=== PATIENT | female | born 1955 | race Caucasian/White ===

== ENCOUNTER 2016-12-04 09:15 | Outpatient (CLI) | payer OTHER | END 2016-12-04 09:16 | disposition home or self-care (01) | DX: Z12.31 Encounter for screening mammogram for malignant neoplasm of breast (principal) ==

== ENCOUNTER 2016-12-10 08:45 | Outpatient (CLI) | payer OTHER | END 2016-12-10 08:46 | disposition home or self-care (01) | DX: N39.0 Urinary tract infection, site not specified (principal) ==

== ENCOUNTER 2017-02-27 11:00 | Outpatient (CLI) | payer OTHER | END 2017-02-27 11:01 | disposition home or self-care (01) | DX: Z00.00 Encounter for general adult medical examination without abnormal findings (principal); E03.9 Hypothyroidism, unspecified ==

== ENCOUNTER 2017-10-25 12:36 | Outpatient (CLI) | payer OTHER ==
--- NOTE | 2017-10-25 19:46 | Ultrasound Report ---
EXAM: PELVIC ULTRASOUND EXAM DATE: 10/25/2017 04:05 PM. CLINICAL HISTORY: Pelvic pain COMPARISON: None. TECHNIQUE: Realtime transabdominal pelvic scan performed to identify the uterus and adnexa and as an overview of other pelvic structures, followed by transvaginal scan to provide greater detail of the u terus and adnexa, with static image documentation. FINDINGS: Uterus: 6.6 x 3.3 x 4.7 cm, volume 53 cc. Anteverted position. Normal overall size and echotexture. Masses: No overt abnormalities. There is some heterogeneity of the lower uterine segment and cervix. Endometrium: 7 mm. Normal. Cervix: Limited detail. Right Ovary: 1.7 x 1.6 x 1.2 cm, volume 2 cc. Echotexture within normal limits. Left Ovary: 2.0 x 0.9 x 1.7 cm, volume 2 cc. Normal echotexture and blood flow. Free Fluid: None. Other: None. IMPRESSION: 1. Endometrium measures 0.7 cm in thickness. This is abnormal in a postmenopausal patient. Differenti al considerations include hyperplasia or carcinoma. 2. No significant adnexal abnormalities are seen. [facility] Referring Provider Line: [phone] SITE ID: [id number]
--- NOTE | 2017-10-25 22:54 | XRAY Report ---
EXAM: RIGHT KNEE RADIOGRAPHY EXAM DATE: 10/25/2017 01:22 PM. CLINICAL HISTORY: Right knee pain. COMPARISON: None. TECHNIQUE: 2 views. FINDINGS: Bones: Normal. No fractures or bone lesions. Joints: Normal. No effusion. No subluxations. Soft Tissues: Normal. No soft tissue swelling. IMPRESSION: Normal knee radiography. [facility] Referring Provider Line: [phone] SITE ID: [id number]
== END 2017-10-25 12:37 | disposition home or self-care (01) ==
LOC: DI 12:36
PROVIDERS: ATTEND Family Medicine
DX: R10.2 Pelvic and perineal pain (principal); M25.561 Pain in right knee
CPT/HCPCS: 76830; 76856

== ENCOUNTER 2018-02-12 08:40 | Outpatient (CLI) | payer OTHER ==
--- NOTE | 2018-02-13 15:53 | Mammography Report ---
DIGITAL SCREENING MAMMOGRAM: 02/12/2018 CLINICAL INDICATION: A 62-year-old, for screening. COMPARISON: 11/2016, 11/2015, 03/2014, 12/2012, 10/2011, 10/2010. TECHNIQUE: Routine CC and MLO projections were obtained of the breasts. FINDINGS: Scattered fibroglandular tissue is present within the breasts. There are no dominant masses, suspicious microcalcifications, or secondary signs of malignancy. In comparison to the previous studies, there are no significant changes. ASSESSMENT: NO MAMMOGRAPHIC EVIDENCE OF MALIGNANCY. NO SIGNIFICANT INTERVAL CHANGES. RECOMMENDATION: Screening mammography is recommended annually. BIRADS category 1 - negative. STANDARD QUALIFYING STATEMENTS: 1. This examination was reviewed with the aid of Computed-Aided Detection (CAD). 2. A negative or benign imaging report should not delay biopsy if clinically suspicious findings are present. Consider surgical consultation if warranted. More than 5% of cancers are not identified by imaging. 3. Dense breasts may obscure an underlying neoplasm. TD: 02/13/2018 15:53
== END 2018-02-12 08:41 | disposition home or self-care (01) ==
LOC: DI 08:40
PROVIDERS: ATTEND Family Medicine
DX: Z12.31 Encounter for screening mammogram for malignant neoplasm of breast (principal)
CPT/HCPCS: 77067

== ENCOUNTER 2019-02-22 10:21 | Day surgery (SDC) | payer OTHER ==
[2019-02-22] MEDS ORDERED: LACTATED RINGERS 1,000 ML IV ONE (10:49)
[2019-02-22] MEDS ORDERED: fentaNYL 250 MCG/5 ML VIAL IVP ONE (12:24)
[2019-02-22] MEDS ORDERED: MIDAZOLAM 2 MG/2 ML VIAL IVP ONE (12:24)
[2019-02-22 13:35] VITALS: BP 99/68
== END 2019-02-22 10:22 | disposition home or self-care (01) ==
LOC: SDS 10:21
PROVIDERS: ATTEND Surgery
PROC: 0DBP8ZZ Excision of Rectum, Via Natural or Artificial Opening Endoscopic (ICD-10-PCS; principal; 2019-02-22 11:30)
DX: Z12.11 Encounter for screening for malignant neoplasm of colon (principal); Z79.82 Long term (current) use of aspirin; D12.8 Benign neoplasm of rectum; J45.909 Unspecified asthma, uncomplicated; E07.9 Disorder of thyroid, unspecified; K64.8 Other hemorrhoids
CPT/HCPCS: 45380; J7120

== ENCOUNTER 2019-04-16 08:35 | Outpatient (CLI) | payer OTHER ==
[2019-04-16 10:00] LABS: ALBUMIN 3.8 g/dL (3.2-5.5); ALBUMIN/GLOBULIN RATIO 1.3 (1.0-2.2); BILIRUBIN,TOTAL 0.6 mg/dL (0.2-1.0); CALCIUM 8.6 mg/dL (8.5-10.3); CREATININE 0.7 mg/dL (0.4-1.0); TOTAL PROTEIN 6.8 g/dL (6.7-8.2)
== END 2019-04-16 08:36 | disposition home or self-care (01) ==
LOC: LAB 08:35
PROVIDERS: ATTEND Family Medicine
DX: E03.9 Hypothyroidism, unspecified (principal); Z79.899 Other long term (current) drug therapy
CPT/HCPCS: 36415; 80053; 84443

== ENCOUNTER 2019-04-20 09:01 | Outpatient (CLI) | payer OTHER ==
[2019-04-20 10:00] LABS: BASOPHILS % (AUTO) 0.8 %; EOSINOPHILS # (AUTO) 0.1 10^3/uL (0.0-0.7); EOSINOPHILS % (AUTO) 2.2 %; HGB - HEMOGLOBIN 14.1 g/dL (12.0-16.0); LYMPHOCYTES # (AUTO) 1.7 10^3/uL (1.5-3.5); LYMPHOCYTES % (AUTO) 40.3 %; MEAN CORPUSCULAR HEMOGLOBIN 28.9 pg (27.0-31.0); MEAN CORPUSCULAR HGB CONC 33.4 g/dL (32.0-36.0); MEAN CORPUSCULAR VOLUME 86.6 fL (81.0-99.0); MEAN PLATELET VOLUME 9.4 fL (7.9-10.8); MONOCYTES # (AUTO) 0.3 10^3/uL (0.0-1.0); MONOCYTES % (AUTO) 6.3 %; NEUTROPHILS # (AUTO) 2.2 10^3/uL (1.5-6.6); NEUTROPHILS % (AUTO) 50.4 %; PLT - PLATELET COUNT 144 10^3/uL (130-450); RED BLOOD COUNT 4.87 10^6/uL (4.20-5.40); RED CELL DISTRIBUTION WIDTH 13.1 % (12.0-15.0); WHITE BLOOD COUNT 4.3 x10^3/uL (4.8-10.8)
[2019-04-20 10:12] LABS: HB2 TOTAL 15.2 g/dL; HEMOGLOBIN A1C 0.6 g/dL; HEMOGLOBIN A1C % 5.8 % (4.6-6.2)
[2019-04-20 10:24] LABS: CHOL/HDL RATIO 3.8 (<4.4); CHOLESTEROL 163 mg/dL; HDL CHOLESTEROL 43 mg/dL; LDL CHOLESTEROL,CALCULATED 98 mg/dL; LDL/HDL RATIO 2.3 (<4.4); VLDL CHOLESTEROL 22 mg/dL
== END 2019-04-20 09:02 | disposition home or self-care (01) ==
LOC: LAB 09:01
PROVIDERS: ATTEND Family Medicine
DX: Z00.00 Encounter for general adult medical examination without abnormal findings (principal)
CPT/HCPCS: 36415; 80061; 83036; 83721; 85025

== ENCOUNTER 2019-05-12 07:59 | Outpatient (CLI) | payer OTHER ==
--- NOTE | 2019-05-12 08:58 | Mammography Report ---
Reason: SCREENING MAMMO Procedure Date: 05/12/2019 Accession Number: [id number] / [id number] Procedure: WIN - Screening Mammo w/Jose CPT Code: FULL RESULT: EXAM: Screening Mammo w/Jose DATE: 05/12/2019 8:48 AM CLINICAL HISTORY: Screening encounter. No reported risk factors. TECHNIQUE: (B) - Bilateral CC and MLO views were obtained. COMPARISON: 02/12/2018 through 03/28/2014. PARENCHYMAL PATTERN: (A) - The breast(s) demonstrate(s) scattered fibroglandular densities. FINDINGS: There are no suspicious masses, calcifications, or areas of distortion. IMPRESSION: Negative examination. BI-RADS category 1. RECOMMENDATION: (ANNUAL) - Recommend routine annual screening mammography. BI-RADS CATEGORY: (1) - Negative. STANDARD QUALIFYING STATEMENTS: 1. This examination was not reviewed with the aid of Computer-Aided Detection (CAD). 2. A negative or benign imaging report should not preclude biopsy if clinically suspicious findings are present. 3. Dense breasts may obscure an underlying neoplasm. 4. This examination was reviewed with the aid of 3D breast imaging (tomosynthesis).
== END 2019-05-12 08:00 | disposition home or self-care (01) ==
LOC: DI 07:59
DX: Z12.31 Encounter for screening mammogram for malignant neoplasm of breast (principal)
CPT/HCPCS: 77063; 77067

== ENCOUNTER 2020-01-17 08:34 | Outpatient (CLI) | payer OTHER ==
[2020-01-17 08:55] LABS: CALCIUM 8.7 mg/dL (8.5-10.3); CREATININE 0.9 mg/dL (0.4-1.0)
[2020-01-17 09:09] LABS: HB2 TOTAL 14.8 g/dL; HEMOGLOBIN A1C 0.58 g/dL; HEMOGLOBIN A1C % 5.7 % (4.6-6.2)
== END 2020-01-17 08:35 | disposition home or self-care (01) ==
LOC: LAB 08:34
PROVIDERS: ATTEND Physician Assistant Medical
DX: R73.01 Impaired fasting glucose (principal)
CPT/HCPCS: 36415; 80048; 83036

== ENCOUNTER 2020-01-31 12:07 | Outpatient (CLI) | payer OTHER ==
[2020-01-31 18:49] LABS: CHOL/HDL RATIO 3.6 (<4.4); CHOLESTEROL 160 mg/dL; HDL CHOLESTEROL 44 mg/dL; LDL CHOLESTEROL,CALCULATED 85 mg/dL; LDL/HDL RATIO 1.9 (<4.4); VLDL CHOLESTEROL 31 mg/dL
== END 2020-01-31 23:59 | disposition home or self-care (01) ==
LOC: LAB.WCP 12:07
PROVIDERS: ATTEND Physician Assistant Medical
DX: Z00.00 Encounter for general adult medical examination without abnormal findings (principal); E03.9 Hypothyroidism, unspecified
CPT/HCPCS: 36415; 80061; 83721; 84443

== ENCOUNTER 2020-02-03 09:07 | Outpatient (CLI) | payer OTHER | END 2020-02-03 09:08 | disposition home or self-care (01) | LOC: DI 09:07 | PROVIDERS: ATTEND Physician Assistant Medical | DX: I34.1 Nonrheumatic mitral (valve) prolapse (principal) | CPT/HCPCS: 93306 ==

== ENCOUNTER 2020-07-25 08:00 | Outpatient (CLI) | payer OTHER ==
[2020-07-25 18:46] LABS: CALCIUM 9.1 mg/dL (8.5-10.3); CREATININE 0.7 mg/dL (0.4-1.0)
[2020-07-25 20:04] LABS: HEMOGLOBIN A1c% 5.6 % (4.27-6.07)
== END 2020-07-25 23:59 | disposition home or self-care (01) ==
LOC: LAB.WCP 08:00
PROVIDERS: ATTEND Physician Assistant Medical
DX: R73.01 Impaired fasting glucose (principal)
CPT/HCPCS: 36415; 80048; 83036

== ENCOUNTER 2020-08-25 09:52 | Outpatient (CLI) | payer OTHER ==
--- NOTE | 2020-08-25 11:44 | DEXA Report ---
PROCEDURE: Dexa Spine and/or Hip INDICATIONS: POST MENOPAUSAL TECHNIQUE: Dual energy x-ray absorptiometry (DXA) was performed on a Isabella Oliver System. Regions measur ed are the AP Spine, femoral neck, and if needed forearm. COMPARISON: None. FINDINGS: Lumbar Spine: Bone Mineral Density 0.990 g/cm/cm,T score -1.6, osteopenia Left Hip: Bone Mineral Density 0.995 g/cm/cm,T score -0.1, normal Left Femoral Neck: Bone Mineral Density 0.977 g/cm/cm, T score -0.4, normal (T score greater or equal to -1.0: NORMAL) (T score from -1.1 to -2.4: OSTEOPENIA) (T score less than or equal to -2.5 to: OSTEOPOROSIS) Impression: Osteopenia. Patients with diagnosis of osteoporosis or osteopenia should have regular bone mineral density assess ment. For those eligible for Medicare, routine testing is allowed once every 2 years. Testing frequ ency can be increased for patients who have rapidly progressing disease or for those who are receivin g medical therapy to restore bone mass. Reviewed by: Bel Walker MD, PhD on 08/25/2020 11:43 AM PDT Approved by: Bel Walker MD, PhD on 08/25/2020 11:43 AM PDT Station ID: [id number]
== END 2020-08-25 09:53 | disposition home or self-care (01) ==
LOC: DI 09:52
PROVIDERS: ATTEND Physician Assistant Medical
DX: M85.88 Other specified disorders of bone density and structure, other site (principal); Z78.0 Asymptomatic menopausal state
CPT/HCPCS: 77080

== ENCOUNTER 2020-08-30 15:21 | Outpatient (CLI) | payer OTHER ==
--- NOTE | 2020-08-31 14:12 | Mammography Report ---
BILATERAL DIGITAL SCREENING MAMMOGRAM 3D/2D: 08/30/2020 CLINICAL: Routine screening. Comparison is made to exams dated: 05/12/2019 mammogram, 02/12/2018 mammogram, 12/04/2016 mammogram, 12/01/2015 mammogram, 03/28/2014 mammogram, and 12/30/2012 mammogram - [facility]. The tis lynne of both breasts is predominantly fatty. No significant masses, calcifications, or other findings are seen in either breast. There has been no significant interval change. IMPRESSION: NEGATIVE There is no mammographic evidence of malignancy. A 1 year screening mammogram is recommended. This exam was interpreted at Station ID: [id number]. NOTE: For mammograms, a report in lay terms will be sent to the patient. Approximately 15% of breast malignancies will not be visualized mammographically. In the management of a palpable breast mass, a negative mammogram must not discourage biopsy of a clinically suspicious lesion. Electronically Signed By: Ty Merchant M.D., jr/po:08/30/2020 16:46:04 ACR BI-RADS Category 1: Negative 3341F PARENCHYMAL PATTERN: (F) - The breast(s) demonstrate(s) diffuse fatty replacement. BI-RADS CATEGORY: (1) - 1 RECOMMENDATION: (ANNUAL) - Recommend routine annual screening mammography. [id number] 1 year screening LATERALITY: (B)
== END 2020-08-30 15:22 | disposition home or self-care (01) ==
LOC: DI 15:21
DX: Z12.31 Encounter for screening mammogram for malignant neoplasm of breast (principal)
CPT/HCPCS: 77063; 77067

== ENCOUNTER 2021-05-15 08:00 | Outpatient (CLI) | payer OTHER ==
[2021-05-15 18:07] LABS: ALBUMIN 3.9 g/dL (3.2-5.5); ALBUMIN/GLOBULIN RATIO 1.3 (1.0-2.2); BILIRUBIN,TOTAL 0.4 mg/dL (0.2-1.0); CALCIUM 8.7 mg/dL (8.5-10.3); CREATININE 0.8 mg/dL (0.4-1.0); POTASSIUM 3.8 mmol/L (3.5-5.0); TOTAL PROTEIN 6.8 g/dL (6.7-8.2)
[2021-05-15 18:21] LABS: THYROID STIMULATING HORMONE 8.51 uIU/mL (0.34-5.60)
[2021-05-15 19:09] LABS: FREE T4 (FREE THYROXINE) 0.93 ng/dL (0.58-1.64)
== END 2021-05-15 23:59 | disposition home or self-care (01) ==
LOC: LAB.WCP 08:00
PROVIDERS: ATTEND Physician Assistant Medical
DX: Z00.00 Encounter for general adult medical examination without abnormal findings (principal); E03.9 Hypothyroidism, unspecified
CPT/HCPCS: 36415; 80053; 84439; 84443

== ENCOUNTER 2021-06-05 14:03 | Outpatient (CLI) | payer OTHER ==
--- NOTE | 2021-06-05 17:18 | XRAY Report ---
PROCEDURE: Knee 3 View RT INDICATIONS: R KNEE PX TECHNIQUE: 3 views of the right knee(s) were acquired. COMPARISON: None. FINDINGS: Bones: No fractures or dislocations. Mild medial femoral tibial compartment osteoarthritic changes a re seen. No suspicious bony lesions. Soft tissues: No joint effusion. No suspicious soft tissue calcifications. IMPRESSION: Medial femoral tibial compartment osteoarthritis. No right knee fracture or dislocation. No significant joint effusion. Reviewed by: Shadi Jean Baptiste MD on 06/05/2021 5:16 PM PDT Approved by: Shadi Jean Baptiste MD on 06/05/2021 5:16 PM PDT Station ID: [id number]
== END 2021-06-05 14:04 | disposition home or self-care (01) ==
LOC: DI.N 14:03
PROVIDERS: ATTEND Physician Assistant Medical
DX: M25.561 Pain in right knee (principal); M17.11 Unilateral primary osteoarthritis, right knee

== ENCOUNTER 2021-07-25 09:09 | Outpatient (CLI) | payer OTHER ==
[2021-07-25 12:50] LABS: THYROID STIMULATING HORMONE 5.17 uIU/mL (0.34-5.60)
[2021-07-25 12:52] LABS: FREE T4 (FREE THYROXINE) 1.25 ng/dL (0.58-1.64)
== END 2021-07-25 23:59 | disposition home or self-care (01) ==
LOC: LAB.WCP 09:09
PROVIDERS: ATTEND Physician Assistant Medical
DX: E03.9 Hypothyroidism, unspecified (principal)
CPT/HCPCS: 36415; 84439; 84443

== ENCOUNTER 2021-08-16 16:27 | Outpatient (CLI) | payer OTHER | END 2021-08-16 16:28 | disposition home or self-care (01) | LOC: COV 16:27 | PROVIDERS: ATTEND Family Medicine | DX: Z20.822 Contact with and (suspected) exposure to COVID-19 (principal) ==

== ENCOUNTER 2021-09-10 13:50 | Outpatient (CLI) | payer MEDICARE, BC ==
--- NOTE | 2021-09-11 10:21 | Mammography Report ---
BILATERAL DIGITAL SCREENING MAMMOGRAM 3D/2D: 09/10/2021 CLINICAL: Routine screening. Comparison is made to exams dated: 08/30/2020 mammogram, 05/12/2019 mammogram, 02/12/2018 mammogram, 09/2017 mammogram, 12/01/2015 mammogram, and 03/28/2014 mammogram - [facility]. The ti ssue of both breasts is predominantly fatty. No significant masses, calcifications, or other findings are seen in either breast. There has been no significant interval change. IMPRESSION: NEGATIVE There is no mammographic evidence of malignancy. A 1 year screening mammogram is recommended. This exam was interpreted at Station ID: [id number]. NOTE: For mammograms, a report in lay terms will be sent to the patient. Approximately 15% of breast malignancies will not be visualized mammographically. In the management of a palpable breast mass, a negative mammogram must not discourage biopsy of a clinically suspicious lesion. Electronically Signed By: Ty Merchant M.D., jr/po:09/10/2021 14:59:55 ACR BI-RADS Category 1: Negative 3341F PARENCHYMAL PATTERN: (F) - The breast(s) demonstrate(s) diffuse fatty replacement. BI-RADS CATEGORY: (1) - 1 RECOMMENDATION: (ANNUAL) - Recommend routine annual screening mammography. [id number] 1 year screening LATERALITY: (B)
== END 2021-09-10 13:51 | disposition home or self-care (01) ==
LOC: DI 13:50
DX: Z12.31 Encounter for screening mammogram for malignant neoplasm of breast (principal)

== ENCOUNTER 2022-02-02 11:08 | Outpatient (CLI) | payer MEDICARE, BC ==
--- NOTE | 2022-02-02 12:54 | XRAY Report ---
PROCEDURE: Cervical Spine w/Flex/Ext INDICATIONS: NECK PAIN, RIGHT TECHNIQUE: 7 views of the cervical spine were acquired. COMPARISON: None. FINDINGS: Bones: No fractures or dislocations to the C7-T1 level. No suspicious bony lesions. Degenerative d isc disease at C4-5 through C6-7 levels are seen with degenerative endplate changes and slight loss o f disc height most prominent at C6-7 level. Minimal anterolisthesis of C5 on C6 is also seen. There i s decreased range of motion between flexion and extension, with preserved cervical spine alignment. L eft-sided bony foraminal stenosis is noted at C7 level on oblique views. Soft tissues: Prevertebral soft tissues are normal in thickness. IMPRESSION: 1. Degenerative disc disease in mid to lower cervical spine. No acute fracture or dislocation. Grade 1 anterolisthesis of C5 on C6. Suggestion of left-sided bony foraminal stenosis at C6-7 level. 2. Decreased range of motion on lateral flexion and extension views with preserved cervical spine ali gnment. Reviewed by: Shadi Jean Baptiste MD on 02/02/2022 12:53 PM PST Approved by: Shadi Jean Baptiste MD on 02/02/2022 12:53 PM PST Station ID: [id number]
== END 2022-02-02 11:09 | disposition home or self-care (01) ==
LOC: DI.N 11:08
PROVIDERS: ATTEND Physician Assistant
DX: M43.12 Spondylolisthesis, cervical region (principal); M50.321 Other cervical disc degeneration at C4-C5 level; M48.02 Spinal stenosis, cervical region

== ENCOUNTER 2022-09-30 10:12 | Outpatient (CLI) | payer MEDICARE, BC ==
[2022-09-30 12:51] LABS: THYROID STIMULATING HORMONE 2.51 uIU/mL (0.34-5.60)
== END 2022-09-30 10:13 | disposition home or self-care (01) ==
LOC: LAB.N 10:12
PROVIDERS: ATTEND Physician Assistant Medical
DX: E03.9 Hypothyroidism, unspecified (principal)
CPT/HCPCS: 36415; 84443

== ENCOUNTER 2022-12-06 09:50 | Outpatient (CLI) | payer MEDICARE, BC ==
--- NOTE | 2022-12-06 12:49 | Mammography Report ---
BILATERAL DIGITAL SCREENING MAMMOGRAM 3D/2D: 12/06/2022 CLINICAL: Routine screening. Comparison is made to exams dated: 09/10/2021 mammogram, 08/30/2020 mammogram, 05/12/2019 mammogram, mammogram, 12/04/2016 mammogram, and 12/01/2015 mammogram - [facility]. Both breasts are heterogeneously dense, which may obscure small masses (category c / 51-75% glandular tissue). No significant masses, calcifications, or other findings are seen in either breast. There has been no significant interval change. IMPRESSION: NEGATIVE There is no mammographic evidence of malignancy. A 1 year screening mammogram is recommended. Based on the Tyrer Cuzick model (a risk assessment model) the patients lifetime risk is 7.6% and her 10 year risk is 4.0%. According to the ACR, ACS, and NCCN guidelines, an annual breast MRI exam mindy g with mammogram is recommended if the patients lifetime risk is 20% or greater. This exam was interpreted at Station ID: [id number]. NOTE: For mammograms, a report in lay terms will be sent to the patient. Approximately 15% of breast malignancies will not be visualized mammographically. In the management of a palpable breast mass, a negative mammogram must not discourage biopsy of a clinically suspicious lesion. Electronically Signed By: Tomer russell/justinrad:12/06/2022 10:25:18 ACR BI-RADS Category 1: Negative 3341F PARENCHYMAL PATTERN: (D) - The breast(s) demonstrate(s) heterogeneously dense fibroglandular cheli gomez. BI-RADS CATEGORY: (1) - 1 RECOMMENDATION: (ANNUAL) - Recommend routine annual screening mammography. [id number] 1 year screening LATERALITY: (B)
== END 2022-12-06 09:51 | disposition home or self-care (01) ==
LOC: DI 09:50
DX: Z12.31 Encounter for screening mammogram for malignant neoplasm of breast (principal)

== ENCOUNTER 2023-05-07 01:58 | Emergency (ER) | payer MEDICARE, BC ==
[2023-05-07 02:36] LABS: ALBUMIN/GLOBULIN RATIO 1.2 (1.0-2.2); BILIRUBIN,TOTAL 0.5 mg/dL (0.2-1.0); CREATININE 0.9 mg/dL (0.4-1.0); POTASSIUM 3.7 mmol/L (3.5-5.0); TOTAL PROTEIN 7.4 g/dL (6.7-8.2)
[2023-05-07 02:47] LABS: BASOPHILS % (AUTO) 0.6 %; EOSINOPHILS # (AUTO) 0.1 10^3/uL (0.0-0.7); EOSINOPHILS % (AUTO) 1.8 %; HCT - HEMATOCRIT 45.9 % (37.0-47.0); LYMPHOCYTES # (AUTO) 2.7 10^3/uL (1.5-3.5); LYMPHOCYTES % (AUTO) 37.8 %; MEAN CORPUSCULAR HEMOGLOBIN 28.4 pg (27.0-31.0); MEAN CORPUSCULAR HGB CONC 32.7 g/dL (32.0-36.0); MEAN CORPUSCULAR VOLUME 86.9 fL (81.0-99.0); MEAN PLATELET VOLUME 10.9 fL (7.9-10.8); MONOCYTES # (AUTO) 0.5 10^3/uL (0.0-1.0); MONOCYTES % (AUTO) 7.1 %; NEUTROPHILS # (AUTO) 3.8 10^3/uL (1.5-6.6); NEUTROPHILS % (AUTO) 52.4 %; PLT - PLATELET COUNT 177 10^3/uL (130-450); RED BLOOD COUNT 5.28 10^6/uL (4.20-5.40); RED CELL DISTRIBUTION WIDTH 13.4 % (12.0-15.0); WHITE BLOOD COUNT 7.2 x10^3/uL (4.8-10.8)
--- NOTE | 2023-05-07 03:28 | ED Physician Documentation ---
PD HPI CHEST PAIN - Stated complaint Stated Complaint: CHEST PX - Chief complaint Chief Complaint: Cardiac - History obtained from History obtained from: Patient - Additional information Additional information: HPI from patient. Patient woke at approximately 12:30 AM this morning with lower chest "tightness", "like a rubber band around my chest" (per patient). this sensation radiated around both flanks to back. She had mild dyspnea at the time of these symptoms. The tightness has gradually but completely resolved by the time of this evaluation. She has not had this sensation before. She does note that last night when eating dinner (not a few hours ago, so this was two "dinners" ago), she felt uncomfortably bloated after eating dinner even though she ate an average amount of dinner (which usually would not give her such a sensation); she then had nausea and vomiting, and felt better after vomiting. She was well all day today as well as after dinner until waking at 12:30 AM as noted. Denies n/v tonight. There were no exacerbating nor ameliorating factors associated with the chest tightness. Review of Systems Cardiac: reports: Chest pain / pressure (tightness, resolved). denies: Palpitations, Pedal edema, Calf pain Respiratory: reports: Dyspnea (resolved) GI: reports: Abdominal Pain, Abdominal Swelling (recently had bloating sensation), Nausea (resolved), Vomiting (resolved). denies: Constipation, Diarrhea : denies: Dysuria, Frequency PD PAST MEDICAL HISTORY - Past Medical History Cardiovascular: Valve disorder Respiratory: None Endocrine/Autoimmune: HyPOthyroidism GI: None : None HEENT: None Psych: None Musculoskeletal: None Derm: None - Past Surgical History General: Colonoscopy HEENT: Tonsil/Adenoidectomy - Present Medications Home Medications: Ambulatory Orders Medication Instructions Recorded Confirmed Aspirin 81 mg PO DAILY 02/19/19 02/19/19 Calcium Carbonate/Vitamin D3 2 each PO DAILY 02/19/19 02/19/19 [Calcium 600-Vit D3 800 Tablet] Diclofenac Sodium Dr [Voltaren] 75 mg PO BIDWM 02/19/19 02/19/19 Levothyroxine Sodium 50 mcg PO DAILY 02/19/19 02/19/19 Multivitamin [Multiple Vitamins] 1 each PO DAILY 02/19/19 02/19/19 Raloxifene HCl 60 mg PO DAILY 02/19/19 02/19/19 oxyCODONE [Roxicodone] 5 - 10 mg PO Q6H PRN #14 tablet 05/07/23 - Allergies Allergies/Adverse Reactions: Allergies Allergy/AdvReac Type Severity Reaction Status Date / Time No Known Drug Allergies Allergy Verified 05/07/23 02:05 PD ED PE NORMAL - Vitals Vital signs reviewed: Yes - General General: Alert and oriented X 3, No acute distress, Well developed/nourished - HEENT HEENT: Moist mucous membranes - Neck Neck: Supple, no meningeal sign - Cardiac Cardiac: RRR, No murmur, No gallop, No rub - Respiratory Respiratory: No respiratory distress, Clear bilaterally - Abdomen Abdomen: Normal bowel sounds, Soft, Non tender, Non distended - Back Back: No CVA TTP - Derm Derm: Normal color, Warm and dry - Extremities Extremities: No edema Results - Vitals Vitals: Oxygen O2 Source Room air - EKG (time done) No standard instances EKG releavant findings:: EKG personally interpreted by author of this note. Relevant findings are: Rate: Rate (enter#) (63) Rhythm: NSR [place]: Normal Intervals: Normal SD QRS: Normal Ischemia: Normal ST segments Other comments: Other comments (PVC) - Labs Labs: Laboratory Tests 05/07/23 05/07/23 05/07/23 02:19 02:19 02:19 WBC 7.2 RBC 5.28 Hgb 15.0 Hct 45.9 MCV 86.9 MCH 28.4 MCHC 32.7 RDW 13.4 Plt Count 177 MPV 10.9 H Neut # (Auto) 3.8 Lymph # (Auto) 2.7 [place] # (Auto) 0.5 Eos # (Auto) 0.1 Baso # (Auto) 0.0 Absolute Nucleated RBC 0.00 Nucleated RBC % 0.0 Sodium 143 Potassium 3.7 Chloride 108 Carbon Dioxide 27 Anion Gap 8.0 BUN 18 Creatinine 0.9 Estimated GFR (MDRD) 62 L Glucose 129 H Calcium 10.0 Total Bilirubin 0.5 AST 21 ALT 19 Alkaline Phosphatase 64 Troponin I High Sens 4.6 Total Protein 7.4 Albumin 4.0 Globulin 3.4 Albumin/Globulin Ratio 1.2 Lipase 50 - Rads (name of study) chest xray Relevant Findings:: Prelim report reviewed, EMP independent interpretation of test (I reviewed these images and my interpretation is no acute disease including no evidence of pneumonia. heart size normal by cardiac silhouette), See rad report CT A/P with IV contrast Relevant Findings:: Prelim report reviewed, See rad report PD Medical Decision Making - ED course Complexity details: reviewed results, re-evaluated patient, considered differential, d/w patient ED course: Tests ordered and results reviewed by me: CBC, ER abdominal panel, hs-cTn, CXR, EKG, CT A/P with IV contrast. The blood tests are normal including (most relevant to this case) normal WBC, LFTs, lipase, and normal hs-cTn. I performed a bedside ultrasound (US is not in house nor information clerk cashier at the time of this evaluation); there is no sonographic Stewart's sign. I am able to visualize a non-distended gallbladder containing a gallstone. I also visualize a large, hypoechoic mass within the liver s/o simple cyst. To better characterize these findings, a CT A/P is performed and this confirms the gallstone. Radiologist's interpretation also notes gallbladder wall thickening and pericholecystic fluid s/o cholecystitis. Also noted are the large hepatic mass that is thought to be likely simple cyst (5.9 cm in largest dimension), and [id number] lesion suspicious for hemangioma. I discussed this case with Dr. Lima (information clerk cashier surgeon for [facility]), particularly regarding the CT findings s/o cholecystitis. Given that patient is in NAD throughout ED stay, afebrile, normal WBC and LFTs/lipase, she can be safely discharged (without antibiotics) and seen in outpatient setting by general surgery for reevaluation. I discussed this with patient, including all of the results (including the relevant as well as incidental findings). I advised her of the need to follow up with general surgery for the biliary colic, and to discuss the other findings. Some of the other findings would best be followed up, initially , by PMD (such as lung nodules) and I advised her to do so (follow up with PMD). I am e-prescribing oxycodone so that she will have pain medication in the event the pain reoccurs. I am prescribing a short course of short-acting opioid pain medication for this patient. I have reviewed the patients TECHNICAL ENGINEER and no concerning findings were noted. I have discussed that the opioids are for short term therapy only, and will not be refilled from the ED. Departure - Departure Disposition: 01 Home, Self Care Clinical Impression: Biliary colic Condition: Good Instructions: ED Gallstone W Biliary Colic Follow-Up: Willem Lima MD [Provider Admit Priv/Credential] - Prescriptions: oxyCODONE [Roxicodone] 5 - 10 mg PO Q6H PRN #14 tablet PRN Reason: Pain >8 Comments: There were no concerning nor diagnostic findings on tonight's blood tests. Most relevant to this situation is that your white blood cell count, liver function tests, and pancreatic enzyme test were all normal. The CT scan confirms that you have a gallstone, and it also shows some swelling of the gallbladder wall and some fluid surrounding the gallbladder which would suggest a small degree of inflammation. As we discussed, there were other incidental findings on the CT scan. The incidental findings include a large cyst in your liver; this can be reevaluated in the outpatient setting by a general surgeon, who you should be following up with in any event regarding your gallstone. There was another lesion in the liver which is quite small and appears to be a hemangioma. Liver hemangiomas are benign, but your doctor might recommend further testing to determine whether or not this is indeed a hemangioma. I spoke with the on-call surgeon for [facility] (Dr. Lima). Elsewhere on these discharge sheets, I have included his office information including the office phone number. You can contact his office to arrange for a follow-up appointment regarding the gallstone, or else you can go through your insurance provider or your primary care provider to obtain a referral. I have electronically submitted a prescription for oxycodone to the [facility] pharmacy in [place]. This is a strong narcotic/opiate pain medication. If the pain reoccurs, you can take 1 or 2 tablets of the oxycodone. If this controls your pain, it might spare you a return visit to the ER. Of course, if your pain is not controlled, or is too severe to wait for pain medication to kick in, you can certainly return to the emergency department. You should absolutely return to the emergency department if you develop any fever (100.4 degrees or higher), any discoloration of skin (particularly yellowing of the skin or eyes), or intractable vomiting. I am prescribing a short course of narcotic pain medication for you. These are potentially dangerous and addictive medications that should be used carefully. These medications may constipate you. Take an qqyr-flm-kyzizyd stool softener (docusate) twice daily with plenty of water while taking these medications. If you go 24 hours without a bowel movement, take ufmr-mcj-zkuleap miralax, per package instructions. Do not drink or drive while taking these medications. If you received narcotic or sedating medications while in the emergency department, do not drive for 24 hours. Store this medication in a safe, secure place and out of reach of children. It is a violation of federal law to give or sell this medication to another person or to use in a manner other than prescribed. The ED will not refill narcotic prescriptions, including prescriptions lost or stolen. To dispose of unwanted medications: 1. [facility] [address] in [place] has a medication drop box. They accept prescription medications (in pill form) Friday through Friday 9:00 a.m. to 5:00 p.m. 2. [facility] accepts prescription medications (in pill form only) for disposal year round. Call for more information. 3. Contact the [facility] for the next [facility] sponsored prescription drug collection event. , [phone], or [phone]; Discharge Date/Time: 05/07/23 07:13
[2023-05-07] MEDS ORDERED: iohexoL-300 100 ML VIAL ONE (05:02)
[2023-05-07] MEDS ORDERED: iohexoL-300 100 ML VIAL IVP ONE (05:34)
[2023-05-07 07:12] VITALS: BP 144/106
--- NOTE | 2023-05-07 08:38 | CT Report ---
PROCEDURE: ABDOMEN/PELVIS W INDICATIONS: abdominal pain CONTRAST: Omni 300 100ml TECHNIQUE: After the administration of contrast, 5 mm thick sections acquired from the diaphragms to the symphys is. 5 mm thick coronal and sagittal reformats were acquired. For radiation dose reduction, the foll owing was used: automated exposure control, adjustment of mA and/or kV according to patient size. COMPARISON: FINDINGS: Image quality: Excellent. Lung bases and heart: Scattered pleural-based nodules are present most prominent in the right lower l obe measuring approximately 4 mm on series 4 image 3. Liver: Low-attenuation foci are present the largest measuring 4.5 cm. Gallbladder and biliary tree: Stones are present within the lumen as well as gallbladder neck. Perich olecystic fluid and/or gallbladder wall thickening is present. Spleen: No splenomegaly. Pancreas: No pancreatic ductal dilation. Adrenals: No adrenal nodule. Kidneys and ureters: No hydronephrosis. No renal cystic lesion which requires follow up. No solid mas s. Bowel and peritoneum: No bowel distension. No pathologic free fluid. Lymph nodes: No central or retroperitoneal adenopathy. Vessels: No infrarenal aortic aneurysm. PELVIS Reproductive organs: Unremarkable. Bladder: No abnormal wall thickening, accounting for underdistension. Pelvic lymph nodes: No pelvic adenopathy by size criteria. Bones: No aggressive osseous abnormality. Other: No significant ventral or inguinal hernia. IMPRESSION: Cholelithiasis with wall thickening/pericholecystic fluid most suggestive cholecystitis. Low-attenuation hepatic foci with the larger lesion most suggestive simple cyst. Smaller foci too sma ll to definitively characterize and could represent cysts or potentially hemangiomas. Nonspecific 4 mm pleural-based pulmonary nodules without priors available for comparison. Recommend i nterval follow-up as below. The above findings are concordant with preliminary report. Fleischner Society criteria for SOLID lung nodule followup. Nodule size (mm) *<6 *Low-risk patient: No follow-up needed *High-risk patient: Optional CT at 12 months; if no change, no further follow-up *6-8 *Low-risk patient: Initial follow-up CT at 6-12 months, then optional CT at 18-24 months. *High-risk patient: Initial follow-up CT at CT at 6-[address] 18-24 months. *>8 single nodule *Low-risk patient: CT, PET or biopsy at 3 months. *High-risk patient: Same as for low-risk pts. *>8 multiple nodules *Low-risk patient: CT at 3-6 months, then optional CT at 18-24 months *High-risk patient: CT at 3-6 months, then CT at 18-24 months Reviewed by: Mendy Sutton MD on 05/07/2023 8:36 AM PDT Approved by: Mendy Sutton MD on 05/07/2023 8:36 AM PDT Station ID: [id number]
--- NOTE | 2023-05-07 10:57 | XRAY Report ---
PROCEDURE: Chest 1 View X-Ray INDICATIONS: Chest pain TECHNIQUE: One view of the chest was acquired. COMPARISON: Chest x-ray 11/27/2017. FINDINGS: Surgical changes and devices: None. Lungs and pleura: No pleural effusions or pneumothorax. Lungs are clear. Mediastinum: Mediastinal contours appear normal. Heart size is mildly prominent. Bones and chest wall: No suspicious bony lesions. Overlying soft tissues appear unremarkable. IMPRESSION: No acute cardiopulmonary process. The above findings are concordant with preliminary report. Reviewed by: Mendy Sutton MD on 05/07/2023 10:55 AM PDT Approved by: Mendy Sutton MD on 05/07/2023 10:55 AM PDT Station ID: [id number]
== END 2023-05-07 07:13 | disposition home or self-care (01) ==
LOC: ED 01:58
DX: K80.70 Calculus of gallbladder and bile duct without cholecystitis without obstruction (principal); K76.89 Other specified diseases of liver
CPT/HCPCS: 36415; 71045; 74177; 80053; 83690; 84484; 85025; 93005; 99284; Q9967

== ENCOUNTER 2023-06-05 10:59 | Day surgery (SDC) | payer MEDICARE, BC ==
[~2023-06-05 10:59] MED LIST: BUPIVACAINE 0.25% PF 30 ML VIAL ONE
[2023-06-05] MEDS ORDERED: LACTATED RINGERS 1,000 ML IV ONE (11:10)
[2023-06-05] MEDS ORDERED: ceFAZolin 2 GM VIAL ONE (11:15)
[2023-06-05] MEDS ORDERED: HYDROmorphone 0.5 MG/0.5 ML SYRINGE IVP PRN ×2 (11:34→14:08)
[2023-06-05] MEDS ORDERED: ePHEDrine 50 MG/ML VIAL IVP PRN (11:34)
[2023-06-05] MEDS ORDERED: NALOXONE 0.4 MG/ML VIAL IVP PRN (11:34)
[2023-06-05] MEDS ORDERED: ONDANSETRON 4 MG/2 ML VIAL IVP PRN ×2 (11:34→14:08)
[2023-06-05] MEDS ORDERED: ATROPINE ABBOJECT 1 MG/10 ML SYRINGE IVP PRN (11:34)
[2023-06-05] MEDS ORDERED: fentaNYL 100 MCG/2 ML VIAL IVP PRN (11:34)
--- NOTE | 2023-06-05 11:34 | ANESTHESIA ---
Pre-Anesthesia VS, & Labs - Diagnosis chronic cholecystitis - Procedure lap adrian Vital Signs: Temp Pulse Resp BP Pulse Ox O2 Flow Rate 36.6 C 60 16 146/77 H 95 06/05/23 11:10 06/05/23 11:10 06/05/23 11:10 06/05/23 11:10 06/05/23 11:10 Height: 5 ft 8 in Weight (kg): 94.1 kg Body Mass Index: 31.5 BMI Classification: Obese - NPO >8 hours - Is Patient ?: No - Lab Results Lab results reviewed: Yes Home Medications and Allergies Calcium Carbonate/Vitamin D3 [Calcium 600-Vit D3 800 Tablet] 2 each PO DAILY 02/19/19 Levothyroxine Sodium 100 mcg PO DAILY 02/19/19 Multivitamin [Multiple Vitamins] 1 each PO DAILY 02/19/19 Raloxifene HCl 60 mg PO DAILY 02/19/19 Allergies/Adverse Reactions: Allergies Allergy/AdvReac Type Severity Reaction Status Date / Time No Known Drug Allergies Allergy Verified 05/07/23 02:05 Anes History & Medical History - Anesthetic History Anesthesia Complications: reports: No previous complications Family history of Anesthesia Complications: Denies Family history of Malignant Hyperthermia: Denies - Medical History 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) Pulmonary: reports: None Gastrointestinal: reports: None Urinary: reports: None Musculoskeletal: reports: None Endocrine/Autoimmune: reports: HyPOthyroidism Blood Disorders: reports: None Skin: reports: Other Smoking Status: Never smoker Psychosocial: reports: No issues indicated - Surgical History General: reports: Colonoscopy Eyes Ears Nose Throat (EENT): reports: Tonsil/Adenoidectomy Exam General: Alert, Oriented x3, Cooperative Dental: WNL Mouth Openin Fingerbreadth Neck Mobility: Normal Mallampati classification: III Thyromental Distance: 4-6 cm Respiratory: Lungs clear Cardiovascular: Regular rate Plan Anesthesia Type: General Consent for Procedure(s) Verified and Reviewed: Yes Code Status: Attempt Resuscitation ASA classification: 2-Mild systemic disease Is this case an emergency?: No
[2023-06-05] MEDS ORDERED: LACTATED RINGERS 1,000 ML IV SCH (12:00)
[2023-06-05] MEDS ORDERED: ROCURONIUM 50 MG/5 ML VIAL ONE (12:40)
[2023-06-05] MEDS ORDERED: fentaNYL 100 MCG/2 ML VIAL ONE (12:40)
[2023-06-05] MEDS ORDERED: ONDANSETRON 4 MG/2 ML VIAL ONE ×2 (12:40→14:41)
[2023-06-05] MEDS ORDERED: PROPOFOL 500 MG/50 ML 500 MG/50 ML VIAL ONE (12:40)
[2023-06-05] MEDS ORDERED: DEXAMETHASONE 4 MG/ML VIAL ONE (12:40)
[2023-06-05] MEDS ORDERED: BUPIVACAINE 0.25% PF 30 ML VIAL SUBQ ONE (12:52)
[2023-06-05] MEDS ORDERED: SUGAMMADEX 200 MG/2 ML VIAL IVP ONE (12:57)
[2023-06-05] MEDS ORDERED: KETOROLAC 30 MG/ML VIAL ONE (13:42)
[2023-06-05] MEDS ORDERED: LACTATED RINGERS 200 ML IV ONE (14:07)
[2023-06-05] MEDS ORDERED: oxyCODONE 5 MG TABLET PO PRN (14:08)
--- NOTE | 2023-06-05 14:31 | HISTORY & PHYSICAL EXAMINATION ---
Chief Complaint - Chief Complaint Chief Complaint: painful right inguinal hernia History of Present Illness - History Obtained From Records Reviewed: yes History obtained from: pt Exam Limitations: none - History of Present Illness HPI Comment/Other: painful right inguinal hernia. 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) Respiratory: reports: None Endocrine/Autoimmune: reports: HyPOthyroidism GI: reports: None : reports: None HEENT: reports: Chronic vision loss Psych: reports: None Musculoskeletal: reports: None Derm: reports: Other MRSA Hx?: No - Past Surgical History General: reports: Colonoscopy HEENT: reports: Tonsil/Adenoidectomy Meds/Allgy - Home Medications Home Medications: Ambulatory Orders Medication Instructions Recorded Confirmed Calcium Carbonate/Vitamin D3 2 each PO DAILY 02/19/19 05/20/23 [Calcium 600-Vit D3 800 Tablet] Levothyroxine Sodium 100 mcg PO DAILY 02/19/19 05/20/23 Multivitamin [Multiple Vitamins] 1 each PO DAILY 02/19/19 05/20/23 Raloxifene HCl 60 mg PO DAILY 02/19/19 05/20/23 Ondansetron Odt [Zofran Odt] 4 mg PO Q6H PRN #10 tablet 06/05/23 - Allergies Allergies/Adverse Reactions: Allergies Allergy/AdvReac Type Severity Reaction Status Date / Time No Known Drug Allergies Allergy Verified 06/05/23 11:37 Review of Systems - Other Findings Other Findings: 10 pt ros as above otherwise unremarkable Exam - Vital Signs Vital Signs: Vital Signs x48h Temp Pulse Resp BP Pulse Ox 06/05/23 14:25 36.8 C 65 10 L 165/103 H 98 06/05/23 14:20 36.8 C 75 11 L 167/97 H 98 06/05/23 14:15 36.6 C 76 12 175/88 H 97 06/05/23 14:07 36.6 C 81 14 177/87 H 100 06/05/23 11:10 36.6 C 60 16 146/77 H 95 - Physical Exam General Appearance: positive: Alert Eyes Bilateral: positive: PERRL, EOMI ENT: positive: No signs of dehydration Neck: positive: No JVD, Trachea midline Respiratory: positive: No respiratory distress, Breath sounds nml Cardiovascular: positive: Regular rate & rhythm Abdomen: positive: Other (right inguinal hernia present) Neurologic/Psychiatric: positive: Oriented x3 Conclusion/Plan - Lab Results Lab results reviewed: Yes
--- NOTE | 2023-06-05 14:35 | OPERATIVE REPORT ---
Operative Report - General Procedure Date: 06/05/23 Planned Procedure: lap adrian Pre-Op Diagnosis: chronic cholecystitis Procedure Performed: lap adrian Post Op Diagnosis: chronic cholecystitis - Procedure Note Primary Surgeon: emi mccarty Anesthesia Technique: General ET tube, Local Pathology: gallbladder Estimated Blood Loss (mL): 2 Drain/Tube Type: Other (none) Indications: painful gallbladder with large stone Findings: as above Complications: none - Other Other Information/Narrative: The patient was properly identified, brought to the operating room and placed in supine position. Sequential compression devices were placed. General endotracheal anesthesia was induced. The patient was prepped and draped in a sterile fashion and given preoperative antibiotics. Local anesthetic was given to incision areas. An incision was made in the periumbilical area. Dissection proceeded down to fascia. The fascia was incised lifted upwards and abdomen entered with a Veress needle. CO2 was insufflated to a pressure of 15. An 11 mm trocar followed by a 30 degree scope was placed. There was no evidence of injury from Veress needle or trocar placement. Under direct vision 2 5 mm trochars were placed in the right upper quadrant and an 11 mm trocar was placed in the epigastrium. Body of the gallbladder was retracted anterior. Lateral attachments were partially taken down further mobilizing the gallbladder more anterior and away from the duodenum. The infundibulum of the gallbladder was then retracted right lateral and caudad. With minimal use of cautery a large bare cystic plate area or window was carefully created. The cystic duct was inspected from right lateral and left lateral positions. [] The cystic duct was then clipped at the gallbladder and 3 times slightly proximal and sharply divided. The cystic artery was clipped at the gallbladder and then 2 times slightly proximal and sharply divided. The gallbladder was mobilized off from the bed of the liver with hook cautery. The gallbladder was placed in Endo Catch bag and brought out through the epigastric trocar site. Hemostasis was assured. Trochars were removed under direct vision. Fascia at the larger trocar sites was closed with [id number] are running 0 Vicryl suture. Subcutaneous tissue was irrigated and skin closed with interrupted 4-0 Monocryl. Dressings were applied. Patient tolerated the procedure well was awakened and brought to recovery in good condition.
[2023-06-05] MEDS ORDERED: oxyCODONE 5 MG TABLET ONE (15:19)
[2023-06-05 15:22] VITALS: BP 148/85
--- NOTE | 2023-06-05 16:39 | ANESTHESIA POST OP EVALUATION ---
Anesthesia Post Eval - Post Anesthesia Eval Vitals: Last Vital Signs Temp 36.4 C L 06/05/23 15:15 Pulse 78 06/05/23 15:15 Resp 16 06/05/23 15:15 BP 148/85 H 06/05/23 15:15 Pulse Ox 99 06/05/23 15:15 O2 Flow Rate CV Function Including HR & BP: Stable Pain Control: Satisfactory Nausea & Vomiting: Negative Mental Status: Baseline Respiratory Status: Airway Patent Hydration Status: Satisfactory Anesthesia Complications: None
== END 2023-06-05 11:00 | disposition home or self-care (01) ==
LOC: SDS 10:59
PROVIDERS: ATTEND Surgery
PROC: 0FT44ZZ Resection of Gallbladder, Percutaneous Endoscopic Approach (ICD-10-PCS; principal; 2023-06-05 12:30)
DX: K80.10 Calculus of gallbladder with chronic cholecystitis without obstruction (principal); E66.9 Obesity, unspecified; Z68.31 Body mass index [BMI] 31.0-31.9, adult
CPT/HCPCS: 47562; A9270; J7120

== ENCOUNTER 2023-11-10 08:43 | Outpatient (CLI) | payer MEDICARE, BC ==
[2023-11-10 12:45] LABS: EOSINOPHILS # (AUTO) 0.1 10^3/uL (0.0-0.7); EOSINOPHILS % (AUTO) 2.1 %; HCT - HEMATOCRIT 43.4 % (37.0-47.0); LYMPHOCYTES # (AUTO) 1.8 10^3/uL (1.5-3.5); LYMPHOCYTES % (AUTO) 42.8 %; MEAN CORPUSCULAR HEMOGLOBIN 28.3 pg (27.0-31.0); MEAN CORPUSCULAR HGB CONC 32.3 g/dL (32.0-36.0); MEAN CORPUSCULAR VOLUME 87.7 fL (81.0-99.0); MEAN PLATELET VOLUME 11.7 fL (7.9-10.8); MONOCYTES # (AUTO) 0.3 10^3/uL (0.0-1.0); MONOCYTES % (AUTO) 7.1 %; NEUTROPHILS % (AUTO) 46.8 %; PLT - PLATELET COUNT 168 10^3/uL (130-450); RED BLOOD COUNT 4.95 10^6/uL (4.20-5.40); RED CELL DISTRIBUTION WIDTH 13.4 % (12.0-15.0); WHITE BLOOD COUNT 4.2 x10^3/uL (4.8-10.8)
[2023-11-10 13:12] LABS: ALBUMIN 3.9 g/dL (3.2-5.5); ALBUMIN/GLOBULIN RATIO 1.4 (1.0-2.2); ALKALINE PHOSPHATASE 73 IU/L (42-121); ALT ALANINE AMINOTRANSFERASE 15 IU/L (10-60); AST ASPARTATE AMINOTRANSFERASE 17 IU/L (10-42); BILIRUBIN,TOTAL 0.4 mg/dL (0.2-1.0); BUN - BLOOD UREA NITROGEN 14 mg/dL (6-20); CARBON DIOXIDE - CO2 28 mmol/L (21-32); CHLORIDE 107 mmol/L (101-111); CHOL/HDL RATIO 3.7 (<4.4); CHOLESTEROL 169 mg/dL; CREATININE 0.7 mg/dL (0.6-1.3); GFR - MDRD 83 (>89); GLUCOSE 103 mg/dL (74-104); HDL CHOLESTEROL 46 mg/dL; LDL CHOLESTEROL,CALCULATED 93 mg/dL; POTASSIUM 3.9 mmol/L (3.5-4.5); SODIUM 140 mmol/L (135-145); TOTAL PROTEIN 6.7 g/dL (6.4-8.9); TRIGLYCERIDES 150 mg/dL (48-352); VLDL CHOLESTEROL 30 mg/dL
[2023-11-10 13:13] LABS: ESTIMATED AVERAGE GLUCOSE 114 mg/dL (70-100); HEMOGLOBIN A1c% 5.6 % (4.27-6.07)
[2023-11-10 13:22] LABS: THYROID STIMULATING HORMONE 3.09 uIU/mL (0.34-5.60)
== END 2023-11-10 08:44 | disposition home or self-care (01) ==
LOC: LAB.N 08:43
PROVIDERS: ATTEND Physician Assistant Medical
DX: Z00.00 Encounter for general adult medical examination without abnormal findings (principal); E03.9 Hypothyroidism, unspecified
CPT/HCPCS: 36415; 80053; 80061; 83036; 83721; 84443; 85025

== ENCOUNTER 2023-11-10 14:58 | Outpatient (CLI) | payer MEDICARE, BC ==
--- NOTE | 2023-11-10 16:22 | DEXA Report ---
PROCEDURE: Dexa Spine and/or Hip INDICATIONS: OSTEOPOROSIS TECHNIQUE: Dual energy x-ray absorptiometry (DXA) was performed on a [employer] System. Regions measur ed are the AP Spine, femoral neck, and if needed forearm. COMPARISON: August 25, 2020 FINDINGS: Lumbar Spine: Bone Mineral Density 1.03 g/cm/cm,T score -1.2. Previously -1.6 Left Femoral Neck: Bone Mineral Density 0.97 g/cm/cm, T score -0.5, previously -0.4. Left Hip: Bone Mineral Density 1.0 g/cm/cm,T score -0.1. Similar to prior (T score greater or equal to -1.0: NORMAL) (T score from -1.1 to -2.4: OSTEOPENIA) (T score less than or equal to -2.5 to: OSTEOPOROSIS) Impression: By WHO criteria, this patient has low bone density (osteopenia). Slight interval improvement in the T score of the lumbar spine. No significant change in the left fem oral neck and hip. Patients with diagnosis of osteoporosis or osteopenia should have regular bone mineral density assess ment. For those eligible for Medicare, routine testing is allowed once every 2 years. Testing frequ ency can be increased for patients who have rapidly progressing disease or for those who are receivin g medical therapy to restore bone mass. Reviewed by: Tomer Isabel MD on 11/10/2023 4:21 PM PST Approved by: Tomer Isabel MD on 11/10/2023 4:21 PM PST Station ID: [id number]
== END 2023-11-10 14:59 | disposition home or self-care (01) ==
LOC: DI 14:58
PROVIDERS: ATTEND Physician Assistant Medical
DX: M85.88 Other specified disorders of bone density and structure, other site (principal); Z00.00 Encounter for general adult medical examination without abnormal findings; E03.9 Hypothyroidism, unspecified
CPT/HCPCS: 36415; 80053; 80061; 83036; 83721; 84443; 85025

== ENCOUNTER 2023-12-10 11:24 | Outpatient (CLI) | payer MEDICARE, BC ==
--- NOTE | 2023-12-11 11:47 | Mammography Report ---
BILATERAL DIGITAL SCREENING MAMMOGRAM 3D/2D: 12/10/2023 CLINICAL: Routine screening. Comparison is made to exams dated: 12/06/2022 mammogram, 09/10/2021 mammogram, 05/12/2019 mammogram, 1 mammogram, 02/12/2018 mammogram, and 12/04/2016 mammogram - [facility]. There are scattered areas of fibroglandular density in both breasts (category b / 25%-50% glandular t issue). No significant masses, calcifications, or other findings are seen in either breast. There has been no significant interval change. IMPRESSION: NEGATIVE There is no mammographic evidence of malignancy. A 1 year screening mammogram is recommended. Based on the Tyrer Cuzick model (a risk assessment model) the patients lifetime risk is 4.2% and her 10 year risk is 2.3%. According to the ACR, ACS, and NCCN guidelines, an annual breast MRI exam along with mammogram is recommended if the patients lifetime risk is 20% or greater. This exam was interpreted at Station ID: [id number]. NOTE: For mammograms, a report in lay terms will be sent to the patient. Approximately 15% of breast malignancies will not be visualized mammographically. In the management of a palpable breast mass, a negative mammogram must not discourage biopsy of a clinically suspicious lesion. Electronically Signed By: Ginny keller/po:12/10/2023 16:47:08 letter sent: No_Letter ACR BI-RADS Category 1: Negative 3341F PARENCHYMAL PATTERN: (A) - The breast(s) demonstrate(s) scattered fibroglandular densities. BI-RADS CATEGORY: (1) - 1 Mammogram [id number] 1 year screening LATERALITY: (B)
== END 2023-12-10 11:25 | disposition home or self-care (01) ==
LOC: DI 11:24
DX: Z12.31 Encounter for screening mammogram for malignant neoplasm of breast (principal); R92.323 Mammographic fibroglandular density, bilateral breasts

== ENCOUNTER 2024-01-12 14:09 | Outpatient (CLI) | payer MEDICARE, BC ==
--- NOTE | 2024-01-13 08:02 | XRAY Report ---
PROCEDURE: Toe(s) 2+V LT INDICATIONS: LEFT TOE PAIN TECHNIQUE: 3 views of the second toe(s) acquired. COMPARISON: None. FINDINGS: Bones: No fractures or dislocations. No suspicious bony lesions. Osteoarthritic changes are presen t in left foot, most pronounced and moderate at the second proximal interphalangeal joint with joint space narrowing and periarticular osteophytes. Soft tissues: No suspicious soft tissue densities. IMPRESSION: Moderate osteoarthritis. Reviewed by: Sherlyn Griffin MD on 01/13/2024 8:00 AM PST Approved by: Sherlyn Griffin MD on 01/13/2024 8:00 AM PST Station ID: [id number]
== END 2024-01-12 14:10 | disposition home or self-care (01) ==
LOC: DI 14:09
PROVIDERS: ATTEND Physician Assistant Medical
DX: M19.072 Primary osteoarthritis, left ankle and foot (principal)
CPT/HCPCS: 73660

== ENCOUNTER 2024-01-16 14:13 | Outpatient (CLI) | payer MEDICARE, BC ==
--- NOTE | 2024-01-17 10:27 | CT Report ---
PROCEDURE: Chest WO INDICATIONS: PULMONARY NODULE TECHNIQUE: A CT scan of the chest was performed. Intravenous contrast media was not administered. Images were re corded and evaluated at appropriate window settings. Reformats: axial MIP of the chest, coronal and s agittal. For radiation dose reduction, the following was used: automated exposure control, adjustment of mA and/or kV according to patient size. COMPARISON: CT abdomen, 05/07/2023. FINDINGS: Image quality: Diagnostic. Chest wall and lower neck: No thyroid nodule which requires sonographic follow up. No axillary or sup raclavicular adenopathy by size. Lungs and pleura: Stable lung nodules are present in right lung. Some nodules are calcified. Referenc e nodules: -3 mm; right middle lobe; series 4 image 44. -4 mm; right lower lobe; series 4 image 59. -7 mm; right lower lobe; series 4 image 64; unchanged. -5 mm; right lobe; series 4 image 65; unchanged. No consolidation. No pleural effusions. No pneumothorax. Mediastinum: Heart size is normal. No pericardial effusion. No large vessel abnormality. No mediastin al adenopathy by size criteria. Bones: No aggressive osseous abnormality. Upper Abdomen: There is a 6.1 x 4.8 cm cyst in the central liver. IMPRESSION: 1. Multiple lung nodules are present; some are calcified. Inflammatory or infectious injuries are fav ored. Previously visualized nodules are unchanged in size. Please see enclosed follow-up recommendati on. Fleischner Society criteria for SOLID lung nodule followup. Nodule size (mm)Low-risk patientHigh-risk patient "d4No follow-up neededFollow-up at 12 mo; if no change, no further follow-up >[id number] CT at 12 mo; if no change, no further follow-up needed.Initial follow-up CT at 6-12 mo, then 18-24 mo if no change. >6-8Initial follow-up CT at 6-12 mo, then 18-24 mo if no change. Initial follow-up CT at 3-6 mo, then 9-12 mo and 24 mo if no change. >8Follow-up CT at 3, 9, 24 mo. Or PET and/or biopsy.Same as for low-risk pts. Reviewed by: Sherlyn Griffin MD on 01/17/2024 10:26 AM PST Approved by: Sherlyn Griffin MD on 01/17/2024 10:26 AM PST Station ID: [id number]
== END 2024-01-16 14:14 | disposition home or self-care (01) ==
LOC: DI 14:13
PROVIDERS: ATTEND Physician Assistant Medical
DX: R91.8 Other nonspecific abnormal finding of lung field (principal)